=== PATIENT | male | born 1960 | race Caucasian/White ===

== ENCOUNTER 2023-02-16 19:38 | Emergency (ER) | payer OTHER ==
[~2023-02-16] VITALS: Ht 185.4 cm; Wt 104.5 kg
[2023-02-16 19:51] VITALS: BP 136/68
[2023-02-16 20:24] LABS: CLARITY,URINE CLOUDY (Clear); COLOR,URINE RED (Yellow); GLUCOSE, URINE >=1000 mg/dl (Neg); KETONES,URINE NEGATIVE (Neg); LEUKOCYTE ESTERASE ,URINE TRACE (Neg); NITRITES, URINE NEGATIVE (Neg); OCCULT BLOOD,URINE LARGE (Neg); PH,URINE 5.5 (4.8-8.0); PROTEIN,URINE TRACE mg/dl (Neg); UROBILINOGEN,URINE 0.2 E.U/dL (0.2-1.0)
[2023-02-16 20:42] LABS: UA COLLECTION TYPE VOIDED
[2023-02-16 20:46] LABS: RBC,URINE TNTC /HPF (0-2); WBC,URINE 0-4 /HPF (0-4)
[2023-02-16 20:47] LABS: BACTERIA,URINE NONE SEEN /HPF (Neg); MUCUS STRANDS FEW /LPF (Neg); SQUAMOUS EPITHELIAL CELL,UR MODERATE /LPF (FEW)
[2023-02-16] MEDS ORDERED: iohexol 300mg/ml 100ml inj. ONE (20:53)
[2023-02-16 21:10] LABS: BASOPHILS % (AUTO) 0.8 % (0-1); EOSINOPHILS # (AUTO) 0.2 X10'3 (0-0.9); EOSINOPHILS % (AUTO) 2.6 % (0-6); HEMATOCRIT 42.9 % (42.0-52.0); HEMOGLOBIN 14.3 g/dl (14.0-17.9); LYMPHOCYTES # (AUTO) 1.7 X10'3 (1.1-4.8); LYMPHOCYTES % (AUTO) 27.8 % (21-51); MEAN CORPUSCULAR HGB CONC 33.3 g/dL (33.0-36.5); MEAN CORPUSCULAR VOLUME 96.3 FL (78-98); MEAN PLATELET VOLUME 7.8 FL (7.4-10.4); MONOCYTES # (AUTO) 0.7 X10'3 (0-0.9); MONOCYTES % (AUTO) 10.8 % (2-12); NEUTROPHILS # (AUTO) 3.5 X10'3 (1.8-7.7); PLATELET COUNT 200 X10'3 (140-440); RED BLOOD COUNT 4.46 X10'6 (4.70-6.10); RED CELL DISTRIBUTION WIDTH 13.8 % (11.5-14.5); WHITE BLOOD COUNT 6.1 X10'3 (4.5-11.0)
[2023-02-16 21:21] LABS: ALANINE AMINOTRANSFERASE 33 U/L (12-78); ALBUMIN 3.8 G/DL (3.4-5.0); ALBUMIN/GLOBULIN RATIO 1.2 (1.1-1.5); ALKALINE PHOSPHATASE 70 IU/L (46-116); ANION GAP 9 (8-16); ASPARTATE AMINO TRANSFERASE 22 U/L (10-37); BILIRUBIN,TOTAL 0.6 MG/DL (0.1-1.0); BLOOD UREA NITROGEN 33 MG/DL (7-18); BUN/CREATININE RATIO 24.8 (10.0-20.0); CALCIUM 8.9 MG/DL (8.5-10.1); CHLORIDE 104 MMOL/L (99-107); CREATININE 1.33 MG/DL (0.60-1.10); GLUCOSE 301 MG/DL (70-104); LIPASE 153 U/L (73-393); POTASSIUM 4.2 MMOL/L (3.5-5.1); SODIUM 138 MMOL/L (135-145); TOTAL CARBON DIOXIDE 24.8 MMOL/L (24-32); eGFR 54 ML/MIN
[2023-02-16] MEDS ORDERED: normal saline 1000ml 1,000 ML IV ONE (21:40)
== END 2023-02-16 22:58 | disposition home or self-care (01) ==
LOC: ER 19:39
DX: R31.9 Hematuria, unspecified (principal); N28.9 Disorder of kidney and ureter, unspecified; Z91.018 Allergy to other foods
CPT/HCPCS: 36415; 74177; 80053; 81001; 83690; 85025; 87088; 96360; 99285; J3490; J7030; Q9967

== ENCOUNTER 2025-01-12 13:44 | Emergency (ER) | payer MEDICARE, OTHER ==
[~2025-01-12] VITALS: Ht 185.4 cm; Wt 111.1 kg
[2025-01-12 13:55] VITALS: BP 134/57; PULSE 67; RESP 18; TEMP 98; O2SAT 98
[2025-01-12] MEDS ORDERED: tetanus & diphtheria toxoid (Td) vaccine 0.5ml IMVAC ONE (14:20)
[2025-01-12] MEDS: TETanus/Pertussis (Acell)/Diphther VAC/PF (Tdap-Adult) 0.5ml syringe IMVAC ONE (15:03)
[2025-01-12] MEDS: LIDOcaine 1% 30ml preserv. free vial SQ STA (15:03)
== END 2025-01-12 15:23 | disposition home or self-care (01) ==
LOC: ER 13:44
DX: S61.412A Laceration without foreign body of left hand, initial encounter (principal); W01.0XXA Fall on same level from slipping, tripping and stumbling without subsequent striking against object, initial encounter; Y93.89 Activity, other specified; Y92.89 Other specified places as the place of occurrence of the external cause; Y99.8 Other external cause status
CPT/HCPCS: 12001; 90471; 90715; 99283; A6222; A6258; A6449

== ENCOUNTER 2025-08-20 06:36 | Emergency (ER) | payer OTHER ==
[~2025-08-20] VITALS: Ht 185.4 cm; Wt 105.7 kg
[~2025-08-20 06:36] MED LIST: CYCL-1 PO
[2025-08-20 06:47] VITALS: TEMP 97.8
--- NOTE | 2025-08-20 09:24 | Physician Documentation ---
History of Present Illness ~ Chief Complaint: Back Pain Stated Complaint: BACK PAIN Time Seen by MD: 09:06 Primary Medical Doctor: [facility] HPI This is a 65-year-old male who presents back to the emergency department for worsened left-sided low back pain, patient was seen for the same one-week prior reported improving symptoms however pain returned last night and worsened this morning. Patient reports pain is worse in certain positions and worse in the morning. Patient reports no new weakness or numbness in his legs, no saddle paresthesia, no recent trauma, no fever, and no loss of bowel or bladder control. Patient additionally reports no history of IV drug use, cancer, or tuberculosis. Medication Reconciliation Allergies: Coded Allergies: avocado (Unverified Allergy, Unknown, 08/20/25) Scheduled Cyclobenzaprine* (Cyclobenzaprine*), 1 TAB PO BID Cyclobenzaprine* (Cyclobenzaprine*), 1 TAB PO BID Ibuprofen (Ibuprofen), 1 TAB PO Q8H Lidocaine (Lidoderm), 1 PATCH TOP DAILY Scheduled PRN Diazepam* (Valium*), 1 TAB PO Q8H PRN for muscle spasms Past Medical History Past Medical History: Chronic Back Pain Review of Systems ROS As stated above in the HPI, otherwise all systems are reviewed and negative. Physical Exam Physical Exam Vital Signs: Temperature: 97.8, Source: Temporal, Heart Rate: 62, Respiratory Rate: 16, BP: 154/87, Pulse Oximetry: 98, Weight: 105.700 Oxygen Flow Rate: 0 Physical Exam VITALS: Reviewed and as above. GENERAL: Alert, nontoxic appearing, no apparent distress. HEENT: RESPIRATORY: No increased work of breathing, no respiratory distress, speaking in full clear sentences CHEST: CV: BACK: Left lumbar back mild tenderness to palpation, no central spinal tenderness, no CVA tenderness GI: MUSCULOSKELETAL: SKIN: NEURO: Sensation to light touch intact and equal in bilateral lower extremities PSYCH: Progress Progress Note 1032: Re-evaluation of patient's back pain he reports moderate relief of pain reports pain is tolerable now. Results/Orders Results/Orders Completed Orders - ASHLI CALDERÓN Ketorolac Trometh 15mg/Ml Vial (Toradol (08/20/25 09:15) Lidocaine 5% Patch (Lidoderm 5% Patch) (08/20/25 10:50) Vital Signs 08/20/25 08/20/25 08/20/25 08/20/25 06:47 09:47 11:15 11:53 Temp 97.8 Pulse 62 52 72 57 Resp 16 18 20 18 B/P (MAP) 154/87 133/68 (89) 144/70 (94) 135/72 (93) Pulse Ox 98 99 98 99 O2 Flow Rate 0 0 0 0 Medical Decision Making Findings This is a 65-year-old male presented back to the emergency department with continued low back pain, patient reports pain not adequately controlled with Fl exeril as previously prescribed. Patients does not have any high-risk features on history including trauma, IVDA, cancer, significant weight loss or history of TB, and the patient has a normal neurologic exam without fever, severe or progressive neurologic deficits, new or worsening urinary retention, urinary/stool incontinence or decreased perineal sensation; therefore imaging wa s not indicated in the ED. I doubt spinal fracture, epidural hematoma, epidural abscess, unstable spinal pathology, emergent renal or aortic pathology, or spinal cord compression. It was reassuring patient reported no back pain red flags and no change in nature of symptoms, with shared decision-making patient will be prescribed 800 mg ibuprofen over previously directed 400 mg ibuprofen and prescribed a short course of Valium for spasmodic lumbar muscle pain. Upon discharge, the patients pain was controlled, and the patient was ambulatory without a risk of falling. Return precautions were discussed including worsening pain, new/worsening weakness/numbness, difficulty urinating, or incontinence. Differential Dx:Considerations: Include: AAA, DJD, Fracture, Musculoskeletal pain, Strain, Urolithiasis, Urinary tract infection, Other (Cauda equina, spinal epidural abscess) Departure Time of Disposition: 10:34 Disposition: 01 HOME / SELF CARE / HOMELESS Impression: Primary Impression: Low back pain Qualified Codes: M54.50 - Low back pain, unspecified Condition: Improved Discharge Instructions: Acute Back Pain, Adult, Lumbosacral Strain Additional Instructions: It is reassuring your back pain slightly improved with the Toradol, please use the prescribed high-dose ibuprofen, use this medication with food to avoid stomach upset, do not take ibuprofen for the next 12 hours as you received a Toradol injection in the emergency department. Please use the prescribed Valium for severe back pain and muscle spasms, this medication will make you very drowsy so do not operate machinery or drive, additionally do not combine this medication with alcohol, narcotics, or any other medication that makes you drowsy. Please follow up with your primary care provider in the next few days. Please return to the emergency department for any new or worsening concerning symptoms including but not limited to new for worsening weakness or numbness in your legs, numbness or tingling in your groin, or loss of bowel or bladder control. Referrals: NO PRIMARY CARE PROVIDER (PCP) Prescriptions Lidocaine (Lidoderm) 5 % Adh..patch 1 PATCH TOP DAILY for 10 Days, #10 PATCH 0 Refills may wear up to 12 hours Prov: ASHLI CALDERÓN 08/20/25 Diazepam* (Valium*) 5 Mg Tablet 1 TAB PO Q8H PRN for muscle spasms for 3 Days, #12 TAB Prov: ASHLI CALDERÓN 08/20/25 Ibuprofen (Ibuprofen) 800 Mg Tablet 1 TAB PO Q8H for pain for 10 Days, #30 TAB 0 Refills Prov: ASHLI CALDERÓN 08/20/25 Education Educated: Patient Educated regarding: diagnosis, treatment, prognosis, need for follow up Signature Scribe Signature: No scribe Attestation: The note accurately reflects work and decisions made by me.MICHELLE Bellamy 08/20/25 21:38 ASHLI CALDERÓN Aug 20, 2025 09:24
[2025-08-20] MEDS: ketorolac trometh 15mg/ml vial 15 MG/ML ML IM ONE (09:39)
[2025-08-20] MEDS ORDERED: DIAZ5TAB22 PO (10:46)
[2025-08-20] MEDS ORDERED: IBUP-1986 PO (10:46)
[2025-08-20] MEDS ORDERED: LIDO-52 TOP (10:48)
[2025-08-20 11:53] VITALS: BP 135/72; PULSE 57; RESP 18; O2SAT 99
== END 2025-08-20 12:07 | disposition home or self-care (01) ==
LOC: ER 06:37
DX: M54.50 Low back pain, unspecified (principal); G89.29 Other chronic pain; Z91.018 Allergy to other foods; Z79.899 Other long term (current) drug therapy
CPT/HCPCS: 96372; 99283; J1885